=== PATIENT | female | born 1970 | race Caucasian/White ===

== ENCOUNTER → 2016-11-06 | Outpatient (CLI) | payer OTHER | LOC: CIMAGING 08:21 | DX: Z12.31 Encounter for screening mammogram for malignant neoplasm of breast (principal) | CPT/HCPCS: G0202 ==

== ENCOUNTER 2016-11-12 17:09 | Emergency (ER) | payer OTHER ==
[2016-11-12] MEDS ORDERED: HYDROCOD/APAP 5/325 PREPACK#6 BTL TAKEHOME ONE (17:39)
--- NOTE | 2016-11-12 17:48 | EDPHY ---
H & P Time Seen by Provider: 11/12/16 17:20 HPI/ROS: HPI Right ear and right arm pain. 46-year-old female by private vehicle with her daughter. This patient has a history of MS. Medications currently include gabapentin which she takes for chronic nerve pain and Cymbalta. She recently started taking Cymbalta about a week and half ago. She also gets an immune modulator infusion monthly. She reports that yesterday she developed pain in her right ear which she describes as feeling like an ear infection which radiates down the right side of her neck into her right shoulder and down her right upper extremity. She also describes having muscle tightness and which she describes as muscle spasms in her right upper extremity only. She denies any new focal weakness or altered sensation. She has not had a fever. She denies any history of traumatic injury. She denies any new headache. She has no other complaints. ROS: Constitutional: No fever, no chills. No weakness. Eyes: No discharge. No changes in vision. ENT: No sore throat. No nasal congestion or rhinorrhea. As above. Respiratory: No cough. No shortness of breath. Cardiac: No chest pain, no palpitations. Gastrointestinal: No abdominal pain, no vomiting, no diarrhea. Genitourinary: No hematuria. No dysuria or increased frequency with urination. Musculoskeletal: No back pain. No neck pain. As above. Skin: No rashes. Neurological: No new headache. No new focal weakness or altered sensation. Past medical history: MS, right shoulder surgery in 2016, cholecystectomy, appendectomy, neurologist is Dr. Pittman. She also sees a neurologist down in [place]. Social history: Nonsmoker. Here with her daughter. Physical Exam: General Appearance: Alert, no distress. This patient is responding to questions appropriately and in full sentences. This patient appears well- hydrated and well-nourished. Eyes: Pupils equal and round no pallor or injection. No lid edema, erythema or injection. ENT, Mouth: Mucous membranes are moist. The pharyngeal tissues are unremarkable. No edema or swelling. No asymmetry suggestive of abscess. No erythema or exudates. The right external auditory canal is clear and patent. The right tympanic membrane was clearly identified and is normal. No vesicles. No other pathology noted. Left external auditory canal and left tympanic membrane are normal. No stridor on auscultation of her neck. No carotid bruits noted on auscultation. Respiratory: There are no retractions, lungs are clear to auscultation with good air movement bilaterally. Cardiovascular: Regular rate and rhythm. No murmur. Neurological: Motor sensory function is grossly intact with chronic right grocery clerk weakness which is at baseline according to the patient. Cranial nerves are normal. Gait is normal. Skin: Warm and dry, no rashes. Musculoskeletal: Neck is supple. No pain on flexion of the neck. No midline cervical spine tenderness. She has vague tenderness lateral paraspinal lower cervical musculature extending down into the right trapezius body. She has normal capillary refill in all digits of the right upper extremity. Normal sensation in all dermatomes of the right upper extremity. There is no asymmetry in comparison to the left upper extremity. No muscle spasming noted. Deep tendon reflexes in the right upper extremity are normal and symmetric in comparison to the left. Extremities are symmetrical. All joints range without pain or impingement. Psychiatric: No agitation. No depression. Database: EKG: Imaging: Procedures: Emergency department course: Vital signs reviewed and are normal. After my evaluation, I reviewed the differential diagnosis with her. She was given 600 mg of ibuprofen and 2 Decherd tablets. I do not believe this is an MS exacerbation, zoster, otitis media or a radiculopathy. Torticollis or dystonic reaction is also unlikely. Plan will be to treat her with high-dose ibuprofen and a short course of Vicodin for 2-3 days for likely musculoskeletal etiology. She is to follow up with her neurologist in [place] within the next 1-2 days. If her symptoms worsen she is to return to the emergency department immediately for re-evaluation. She is in agreement with this plan. All of her questions were answered. She was discharged with her daughter in good condition. Differential Diagnosis: The differential diagnosis on this patient includes but is not limited to muscle spasm, cervical strain. Zoster, otitis media, cervical radiculopathy, CVA, acute MS exacerbation, traumatic cervical spine injury, carotid artery dissection, medication reaction unlikely. This represents a partial list of diagnoses considered. These considerations are based on history, physical exam , past history, reassessment and diagnostic testing. Smoking Status: Never smoked Constitutional: Initial Vital Signs Temperature (C) 37.4 C 11/12/16 17:12 Heart Rate 80 05/23/17 17:12 Respiratory Rate 16 11/12/16 17:12 Blood Pressure 122/75 H 11/12/16 17:12 O2 Sat (%) 95 11/12/16 17:12 O2 Delivery Mode Room Air Allergies/Adverse Reactions: No Known Allergies Allergy (Unverified 11/12/16 17:17) Home Medications: Medication Instructions Recorded Cymbalta 11/12/16 GABAPENTIN 11/12/16 Tysabri 11/12/16 Medical Decision Making - Data Points Medications Given: Discontinued Medications Hydrocodone Bitart/Acetaminophen (Decherd 5/325mg Prepack#6) 1 btl TAKEHOME EDNOW ONE Stop: 11/12/16 17:40 Last Admin: 11/12/16 17:42 Dose: 1 btl Hydrocodone Bitart/Acetaminophen (Decherd 5/325) 2 tab PO EDNOW ONE Stop: 11/12/16 17:54 Last Admin: 11/12/16 17:55 Dose: 2 tab Ibuprofen (Motrin) 600 mg PO EDNOW ONE Stop: 11/12/16 17:53 Last Admin: 11/12/16 17:54 Dose: 600 mg Departure - Departure Disposition: Home, Routine, Self-Care Clinical Impression: Ear pain, right, Right upper limb pain Condition: Good Instructions: Hydrocodone/Acetaminophen (By mouth), Earache (ED), Arm Pain (ED) Additional Instructions: Read and follow provided instructions. Follow-up with your neurologist as discussed in 1-2 days for re-evaluation. Take medication as prescribed only. Decherd/Percocet dosin-2 every 4-[address] for [address] not drive on this medication. Ibuprofen dosin mg every 6 hours with meals for the next 3 days only. Return to the emergency department for worsening symptoms, worsening pain, weakness, loss of sensation or other serious concerns. Referrals: Ariel Pittman DO [Medical Doctor] - As per Instructions
[2016-11-12] MEDS ORDERED: IBUPROFEN 800 MG TAB PO ONE (17:52)
[2016-11-12] MEDS ORDERED: IBUPROFEN 600 MG TAB PO ONE (17:53)
[2016-11-12] MEDS ORDERED: HYDROCODONE/APAP 5/325 TAB ONE (17:53)
[2016-11-12] MEDS ORDERED: HYDROCODONE/APAP 5/325 TAB PO ONE (17:53)
[2016-11-12 18:02] VITALS: BP 136/83; PULSE 79; RESP 14; TEMP 98.4; O2SAT 96
== END 2016-11-12 18:00 | disposition home or self-care (01) ==
LOC: CED 17:09
DX: H92.01 Otalgia, right ear (principal); M79.621 Pain in right upper arm

== ENCOUNTER 2016-12-17 18:57 | Emergency (ER) | payer OTHER ==
[2016-12-17] MEDS ORDERED: METOCLOPRAMIDE 10 MG/2 ML VIAL IVP ONE (19:29)
[2016-12-17 19:34] LABS: % IMMATURE GRANULYOCYTES 0.4 % (0.0-1.1); ABSOLUTE IMMATURE GRANULOCYTES 0.03 10^3/uL (0.00-0.10); ABSOLUTE NRBC COUNT 0.06 10^3/uL (0-0.01); ADD DIFF? NO; ADD MORPH? NO; ADD SCAN? NO; ATYPICAL LYMPHOCYTE FLAG 20 (0-99); FRAGMENT RBC FLAG 0 (0-99); HEMATOCRIT 37.1 % (38.0-47.0); HEMOGLOBIN 12.9 g/dL (12.6-16.3); LEFT SHIFT FLG 0 (0-99); LIPEMIA HEMOLYSIS FLAG 90 (0-99); MEAN CELL HEMOGLOBIN 30.4 pg (27.9-34.1); MEAN CELL HEMOGLOBIN CONCENTR. 34.8 g/dL (32.4-36.7); MEAN CELL VOLUME 87.5 fL (81.5-99.8); MEAN PLATELET VOLUME 9.4 fL (8.7-11.7); NRBC-AUTO% 0.8 % (0.0-0.2); PLATELET CLUMPS FLAG 0 (0-99); PLATELET COUNT 259 10^3/uL (150-400); RED BLOOD CELL COUNT 4.24 10^6/uL (4.18-5.33); RED CELL DISTRIBUTION WIDTH 13.8 % (11.5-15.2)
[2016-12-17 19:47] LABS: ANION GAP 12 mEq/L (8-16); CALCIUM 8.8 mg/dL (8.5-10.4); CARBON DIOXIDE 20 mEq/l (22-31); CHLORIDE 107 mEq/L (97-110); CREATININE 0.6 mg/dL (0.6-1.0); GLOMERULAR FILTRATION RATE > 60; GLUCOSE 93 mg/dL (70-100); POTASSIUM 4.2 mEq/L (3.5-5.2); SODIUM 139 mEq/L (134-144)
[2016-12-17 20:12] VITALS: RESP 16; TEMP 98.2
--- NOTE | 2016-12-17 20:17 | EDPHY ---
H & P Stated Complaint: c/o Double vision while watching movie today Time Seen by Provider: 12/17/16 19:15 HPI/ROS: This patient reports onset of diplopia while watching a movie today at 5:30 p.m. with her daughter. It was not a 3D movie. She reports that she feels fatigued today because of neuro cognitive testing that was done from 930-145 today. She also admits to 2 drinks of alcohol-1 glass of shard in a and a glass of sangria. She has had diplopia associated with her MS when she 1st presented with MS and also when she is fatigue. She also reports onset of headache around the same time that is right occipital in location extend the parietal region and is currently 4/10 intensity, throbbing in nature and similar to migraines though not as severe as her typical migraines. She has associated nausea and photophobia. Finally, she reports mild vertigo which she says she also gets with her MS. She has no change in her baseline right arm and leg numbness that she attributes to her MS. The diplopia diminishes when she closes her right eye. No other exacerbating factors ROS: No fevers chills or other constitutional symptoms HEENT: She has mild coryza but no other HEENT complaints. No eye trauma. No eye discharge or redness Neuro: As per HPI. No new numbness tingling or weakness. No recent head trauma. No eye trauma. She does report increased blurred vision for about 2 weeks compared to baseline bilaterally. Pulmonary: Minimal intermittent cough for the past few days. This is mostly in the mornings and then clears. No pleuritic pain. No hemoptysis. No dyspnea. Cardiovascular: No chest pain. No lower extremity swelling. GI: Nausea but no vomiting. No abdominal pain : Last menstrual period-none due to hysterectomy. No other symptoms Endocrine: Negative Integumentary: No skin rash Complete review of symptoms is otherwise negative. Source: Patient Exam Limitations: No limitations - Personal History Current Tetanus Diphtheria and Acellular Pertussis (TDAP): Yes Tetanus Vaccine Date: WITHIN 10 YRS - Medical/Surgical History Hx Asthma: No Hx Chronic Respiratory Disease: No Hx Diabetes: No Hx Cardiac Disease: No Hx Renal Disease: No Hx Cirrhosis: No Hx Alcoholism: No Hx HIV/AIDS: No Hx Splenectomy or Spleen Trauma: No Other PMH: MS, right shoulder surgery 2016, freddie, parag, hysterectomy - Family History Significant Family History: No pertinent family hx - Social History Smoking Status: Never smoked Alcohol Use: Occasionally Drug Use: None - Physical Exam Exam: Physical exam: Vital signs are normal General: Patient is in no acute distress. HEENT: Is no external evidence of trauma on exam. Nose atraumatic. Ears: Clear bilaterally with no hemotympanum. Oropharynx: No dental trauma or malocclusion. No intraoral lacerations. Eyes: Pupils are equal and reactive to light. Extraocular motions are grossly intact with no obvious dysconjugate gaze. She does report worsening diplopia with extraocular motions however. Optic fundi: Unable to perform due to intolerance of bright light. Visual acuity is reviewed as per nurse's documentation Lungs: Clear to auscultation bilaterally Neck: Supple no meningismus. Cardiac: Regular rate and rhythm no murmur gallop or rub. Abdomen: Soft nontender no organomegaly Neuro: GCS of 15. Cranial nerves II through XII intact. Cerebellar exam is normal as judged by symmetric rapid hand movements bilaterally. No pronator drift. No sensory or motor deficits are appreciated. Initial differential diagnosis: Migraine, tension headache, PLATE ROLLER lesion, intracranial bleed, MS with increased symptoms due to alcohol and fatigue, MS flare Constitutional: Initial Vital Signs Temperature (C) 36.6 C 12/17/16 19:18 Heart Rate 96 12/17/16 19:18 Respiratory Rate 18 12/17/16 19:18 Blood Pressure 119/97 H 12/17/16 19:18 O2 Sat (%) 97 12/17/16 19:18 O2 Delivery Mode Room Air Allergies/Adverse Reactions: No Known Allergies Allergy (Unverified 11/12/16 17:17) Home Medications: Medication Instructions Recorded Cymbalta 11/12/16 GABAPENTIN 11/12/16 Tysabri 11/12/16 AMITRIPTYLINE HCL 12/17/16 Medical Decision Making - Diagnostics Imaging Results: Imaging Impressions Head CT 12/17/16 19:29 Impression: 1. No acute intracranial abnormality seen. 1. Possible small periventricular white matter plaques in this patient with clinical history of multiple sclerosis. If indicated, consider correlation with MRI at some point. Findings discussed with Florentin Johnson M.D. at 20:49 hour, 12/17/2016. Imaging: Discussed imaging studies w/ call or contact centre coach Radiologist (I also reviewed the CT images myself.) ED Course/Re-evaluation: IV Reglan and Benadryl initially with relief of nausea but no significant improvement in headache Normal saline bolus after review of CT and Toradol 30 mg IV some improvement. At 9:11 p.m. I spoke with the patient in her headache is down to 2/10 after treatment she feels improved. However her diplopia persists to the same severity. I spoke with Dr. Trejo-the on-call neurologist regarding this patient who recommends an IV Solu-Medrol dose-500 mg for likely MS flare The patient has an appointment already for tomorrow to see her PA that works with Dr. Dupont-her neurologist Discussion: Patient with migraine headache that improved significantly with treatment and evidence of MS flare with recurrence of diplopia similar to her diplopia with the onset of MS treated with Solu-Medrol with plan for close follow up with Neurology. CT scan ruled out significant intracranial bleed or lesion. - Data Points Laboratory Results: Laboratory Results 12/17/16 19:22 12/17/16 19:22 12/17/16 12/17/16 19:22 19:22 WBC 7.60 10^3/uL 10^3/uL (3.80-9.50) RBC 4.24 10^6/uL 10^6/uL (4.18-5.33) Hgb 12.9 g/dL g/dL (12.6-16.3) Hct 37.1 % L % (38.0-47.0) MCV 87.5 fL fL (81.5-99.8) MCH 30.4 pg pg (27.9-34.1) MCHC 34.8 g/dL g/dL (32.4-36.7) RDW 13.8 % % (11.5-15.2) Plt Count 259 10^3/uL 10^3/uL (150-400) MPV 9.4 fL fL (8.7-11.7) Neut % (Auto) 31.1 % L % (39.3-74.2) Lymph % (Auto) 57.8 % H % (15.0-45.0) [place] % (Auto) 6.2 % % (4.5-13.0) Eos % (Auto) 3.7 % % (0.6-7.6) Baso % (Auto) 0.8 % % (0.3-1.7) Nucleat RBC Rel Count 0.8 % H % (0.0-0.2) Absolute Neuts (auto) 2.37 10^3/uL 10^3/uL (1.70-6.50) Absolute Lymphs (auto) 4.39 10^3/uL H 10^3/uL (1.00-3.00) Absolute Monos (auto) 0.47 10^3/uL 10^3/uL (0.30-0.80) Absolute Eos (auto) 0.28 10^3/uL 10^3/uL (0.03-0.40) Absolute Basos (auto) 0.06 10^3/uL 10^3/uL (0.02-0.10) Absolute Nucleated RBC 0.06 10^3/uL H 10^3/uL (0-0.01) Immature Gran % 0.4 % % (0.0-1.1) Immature Gran # 0.03 10^3/uL 10^3/uL (0.00-0.10) Sodium 139 mEq/L mEq/L (134-144) Potassium 4.2 mEq/L mEq/L (3.5-5.2) Chloride 107 mEq/L mEq/L (97-110) Carbon Dioxide 20 mEq/l L mEq/l (22-31) Anion Gap 12 mEq/L mEq/L (8-16) BUN 7 mg/dL mg/dL (7-23) Creatinine 0.6 mg/dL mg/dL (0.6-1.0) Estimated GFR > 60 Glucose 93 mg/dL mg/dL (70-100) Calcium 8.8 mg/dL mg/dL (8.5-10.4) Medications Given: Discontinued Medications Acetaminophen (Tylenol) 975 mg PO EDNOW ONE Stop: 12/17/16 21:12 Last Admin: 12/17/16 21:18 Dose: 975 mg Diphenhydramine HCl (Benadryl Injection) 25 mg IVP EDNOW ONE Stop: 12/17/16 19:29 Last Admin: 12/17/16 19:42 Dose: 25 mg Sodium Chloride (Ns) 1,000 mls @ 0 mls/hr IV ONCE ONE; Wide Open PRN Reason: Protocol Stop: 12/17/16 20:26 Last Admin: 12/17/16 20:33 Dose: 1,000 mls Ketorolac Tromethamine (Toradol) 30 mg IVP EDNOW ONE Stop: 12/17/16 20:26 Last Admin: 12/17/16 20:32 Dose: 30 mg Metoclopramide HCl (Reglan Injection) 5 mg IVP EDNOW ONE Stop: 12/17/16 19:30 Last Admin: 12/17/16 19:43 Dose: 5 mg Departure - Departure Disposition: Home, Routine, Self-Care Clinical Impression: Diplopia, Multiple sclerosis Migraine Qualifiers: Migraine type: unspecified Status migrainosus presence: without status migrainosus Intractability: not intractable Qualified Code(s): G43.909 - Migraine, unspecified, not intractable, without status migrainosus Condition: Good Instructions: Migraine Headache (ED), Diplopia (ED) Additional Instructions: Diagnosis: 1. Diplopia 2. Multiple sclerosis 3. Migraine Plan: Your given IV [id number] mg for treatment of evidence of MS flare after consultation with Dr. Trejo-the on-call neurologist Follow up with your neurology PA tomorrow. Continue current medications Return emergency department for any significant worsening despite the treatment plan Referrals: Wilder Delcid DO [Primary Care Provider] - As per Instructions
[2016-12-17] MEDS ORDERED: NS 1,000 ML IV ONE (20:25)
[2016-12-17] MEDS ORDERED: KETOROLAC 30 MG/1 ML SDV IVP ONE (20:25)
[2016-12-17] MEDS ORDERED: ACETAMINOPHEN 325 MG TAB PO ONE (21:11)
[2016-12-17] MEDS ORDERED: methylPREDNISolone SOD SUCC 500 MG in D5W 100 ML IV ONE (21:21)
[2016-12-17] MEDS ORDERED: methylPREDNISolone SOD SUCC 1 GM/8 ML VIAL ONE (21:25)
[2016-12-17] MEDS ORDERED: methylPREDNISolone SOD SUCC 125 MG/2 ML VIAL ONE (21:27)
[2016-12-17] MEDS ORDERED: NS 100 ML BAG IV ONE (21:34)
[2016-12-17 22:22] VITALS: O2SAT 95
[2016-12-17] MEDS ORDERED: HYDROmorphONE/DILAUDID 1 MG/ML SYR IVP ONE (22:48)
[2016-12-17 23:30] VITALS: BP 124/88; PULSE 87
== END 2016-12-17 23:37 | disposition home or self-care (01) ==
LOC: CED 18:57
DX: H53.2 Diplopia (principal); G35 Multiple sclerosis; G43.909 Migraine, unspecified, not intractable, without status migrainosus; E86.9 Volume depletion, unspecified; Z90.710 Acquired absence of both cervix and uterus; Z90.49 Acquired absence of other specified parts of digestive tract
CPT/HCPCS: 70450-PO; 80048-PO; 85025-PO; 96365; J1170; J1200; J1885; J2765; J2930

== ENCOUNTER → 2017-04-02 | Outpatient (CLI) | payer OTHER ==
--- NOTE | 2017-04-02 17:03 | CPEEG ---
[f rep st] ELECTROENCEPHALOGRAM DATE OF STUDY: 04/02/2017 INTERPRETATION: Normal EEG during wakefulness and sleep. There were no potentially epileptogenic ab normalities present on the recording. REPORT: This EEG contains 9 Hz alpha activity to the posterior head regions. There was no abnormal activation at rest, during photic stimulation or hyperventilation. The patient became drowsy and fel l asleep during the study. There was no abnormal activation during drowsiness, sleep, or during time s of arousal. /[id number]/MODL
== END ==
LOC: FCPNEURO 10:31
PROVIDERS: ATTEND Physician Assistant Medical
DX: R40.4 Transient alteration of awareness (principal); G35 Multiple sclerosis

== ENCOUNTER 2017-07-24 09:29 | Emergency (ER) | payer OTHER ==
[2017-07-24 09:43] VITALS: RESP 16; TEMP 98.6
[2017-07-24] MEDS ORDERED: NS 1,000 ML IV ONE ×2 (09:45→10:51)
[2017-07-24] MEDS ORDERED: ONDANSETRON 4 MG/2 ML VIAL IVP ONE ×2 (09:45→10:23)
[2017-07-24] MEDS ORDERED: KETOROLAC 30 MG/1 ML SDV IVP ONE (09:45)
--- NOTE | 2017-07-24 09:47 | EDPHY ---
H & P Stated Complaint: PT. states vomiting and diarrhea since last night(2129),chills Time Seen by Provider: 07/24/17 09:41 HPI/ROS: CHIEF COMPLAINT: Nausea, vomiting and diarrhea HISTORY OF PRESENT ILLNESS: Patient is a 46-year-old female with a history of MS who comes to the emergency department complaining of nausea vomiting and diarrhea that began last night. No fevers. No blood in her vomit or stool. She states that she has vomited about 15 times. She tried taking Pepto-Bismol but threw it up. She cannot keep down fluids. She does have a history of appendectomy, cholecystectomy and hysterectomy. She has not felt bloated or distended. She does not have any sick contacts. No chest pain or shortness of breath. No weakness. No rash. She does have occasional chills. REVIEW OF SYSTEMS: Constitutional: See HPI EENTM: denies: blurred vision, double vision, nose congestion Respiratory: denies: cough, shortness of breath Cardiac: denies: chest pain, irregular heart rate, lightheadedness, palpitations Gastrointestinal/Abdominal: See HPI Genitourinary: denies: dysuria, frequency, hematuria, pain Musculoskeletal: denies: joint pain, muscle pain Skin: denies: lesions, rash, jaundice, bruising Neurological: denies: headache, numbness, paresthesia, tingling, dizziness, weakness Hematologic/Lymphatic: denies: blood clots, easy bleeding, easy bruising Immunologic/allergic: denies: HIV/AIDS, transplant EXAM: GENERAL: Uncomfortable, well-nourished and in no acute distress. HEAD: Atraumatic, normocephalic. EYES: Pupils equal round and reactive to light, extraocular movements intact, sclera anicteric, conjunctiva are normal. ENT: TMs normal, nares patent, oropharynx clear without exudates. Moist mucous membranes. NECK: Normal range of motion, supple without lymphadenopathy or JVD. LUNGS: Breath sounds clear to auscultation bilaterally and equal. No wheezes rales or rhonchi. HEART: Regular rate and rhythm without murmurs, rubs or gallops. ABDOMEN: Soft, nontender, normoactive bowel sounds. No guarding, no rebound. No masses appreciated. BACK: No CVA tenderness, no spinal tenderness, step-offs or deformities EXTREMITIES: Normal range of motion, no pitting or edema. No clubbing or cyanosis. NEUROLOGICAL: Cranial nerves II through XII grossly intact. Normal speech, normal gait. 5/5 strength, normal movement in all extremities, normal sensation PSYCH: Normal mood, normal affect. SKIN: Warm, dry, normal turgor, no visible rashes or lesions. Source: Patient, Family, Old records Exam Limitations: No limitations - Personal History LMP (Females 10-55): Hysterectomy Tetanus Vaccine Date: WITHIN 10 YRS - Medical/Surgical History Hx Asthma: No Hx Chronic Respiratory Disease: No Hx Diabetes: No Hx Cardiac Disease: No Hx Renal Disease: No Hx Cirrhosis: No Hx Alcoholism: No Hx HIV/AIDS: No Hx Splenectomy or Spleen Trauma: No Other PMH: MS, right shoulder surgery 2016, [employer], hysterectomy - Family History Significant Family History: No pertinent family hx - Social History Smoking Status: Never smoked Alcohol Use: None Constitutional: Initial Vital Signs Temperature (C) 37.0 C 07/24/17 09:39 Heart Rate 108 H 07/24/17 09:39 Respiratory Rate 16 07/24/17 09:39 Blood Pressure 143/119 H 07/24/17 09:39 O2 Sat (%) 97 07/24/17 09:39 O2 Delivery Mode Room Air Allergies/Adverse Reactions: No Known Allergies Allergy (Verified 07/24/17 09:37) Home Medications: Medication Instructions Recorded Cymbalta 11/12/16 GABAPENTIN 11/12/16 Tysabri 11/12/16 Baclofen 10 mg (*) 07/24/17 DULoxetine 07/24/17 Diazepam 07/24/17 Dicyclomine 07/24/17 Estradiol 07/24/17 Promethazine HCl [Phenergan 25mg 25 mg PO Q6-8PRN PRN #20 tab 07/24/17 (RX)] SUMAtriptan 07/24/17 Tramadol HCl 07/24/17 busPIRone 07/24/17 Medical Decision Making ED Course/Re-evaluation: 11:15 a.m. the patient's abdominal exam remains benign. She was feeling better but starting to feel nauseous again after p.o. challenge. I will treat her with Phenergan and will continue to observe. She has not yet provided a urine sample. She is still receiving IV fluids. 11:10 p.m. the patient is doing well. Her abdominal exam is benign. She is tolerating p. o.. She is asking to go home and asking for Phenergan prescription. She states this worked better than the Zofran. Differential Diagnosis: Partial list of the Differential diagnosis considered include but were not limited to; gastritis, food poisoning and although unlikely based on the history and physical exam, I also considered obstruction, ischemia, volvulus, hernia. I discussed these differential diagnoses and the plan with the patient as well as the usual and expected course. The patient understands that the diagnosis is provisional and that in medicine we are not always correct and that further workup is often warranted. Usual and customary warnings were given. All of the patient's questions were answered. The patient was instructed to return to the emergency department should the symptoms at all worsen or return, otherwise to followup with the physician as we discussed. - Data Points Laboratory Results: Laboratory Results 07/24/17 09:45 07/24/17 09:45 07/24/17 07/24/17 07/24/17 11:55 09:45 09:45 WBC RBC Hgb Hct MCV MCH MCHC RDW Plt Count MPV Neut % (Auto) Lymph % (Auto) [place] % (Auto) Eos % (Auto) Baso % (Auto) Nucleat RBC Rel Count Absolute Neuts (auto) Absolute Lymphs (auto) Absolute Monos (auto) Absolute Eos (auto) Absolute Basos (auto) Absolute Nucleated RBC Immature Gran % Immature Gran # Sodium 145 mEq/L mEq/L (135-145) Potassium 4.2 mEq/L mEq/L (3.5-5.2) Chloride 107 mEq/L mEq/L (97-110) Carbon Dioxide 20 mEq/l L D mEq/l (22-31) Anion Gap 18 mEq/L H mEq/L (8-16) BUN 10 mg/dL mg/dL (7-23) Creatinine 0.6 mg/dL mg/dL (0.6-1.0) Estimated GFR > 60 Glucose 102 mg/dL H mg/dL (70-100) Calcium 10.1 mg/dL mg/dL (8.5-10.4) Total Bilirubin 0.6 mg/dL mg/dL (0.1-1.4) Conjugated Bilirubin 0.2 mg/dL mg/dL (0.0-0.5) Unconjugated Bilirubin 0.4 mg/dL mg/dL (0.0-1.1) AST 31 IU/L IU/L (14-46) ALT 38 IU/L IU/L (9-52) Alkaline Phosphatase 98 IU/L IU/L (38-126) Total Protein 7.8 g/dL g/dL (6.3-8.2) Albumin 4.6 g/dL g/dL (3.5-5.0) Lipase 120 IU/L IU/L (23-300) Beta HCG, Qual NEGATIVE Urine Color YELLOW Urine Appearance HAZY Urine pH 8.5 H (5.0-7.5) Ur Specific [place] 1.015 (1.002-1.030) Urine Protein TRACE H (NEGATIVE) Urine Ketones 2+ H (NEGATIVE) Urine Blood NEGATIVE (NEGATIVE) Urine Nitrate NEGATIVE (NEGATIVE) Urine Bilirubin NEGATIVE (NEGATIVE) Urine Urobilinogen 0.2 EU EU (0.2-1.0) Ur Leukocyte Esterase NEGATIVE (NEGATIVE) Urine RBC 1-3 /hpf /hpf (0-3) Urine WBC 1-3 /hpf /hpf (0-3) Ur Epithelial Cells TRACE /lpf /lpf (NONE-1+) Urine Bacteria TRACE /hpf H /hpf (NONE SEEN) Urine Mucus TRACE /lpf /lpf (NONE-1+) Urine Glucose NEGATIVE (NEGATIVE) 07/24/17 09:45 WBC 8.86 10^3/uL 10^3/uL (3.80-9.50) RBC 4.74 10^6/uL 10^6/uL (4.18-5.33) Hgb 14.1 g/dL g/dL (12.6-16.3) Hct 40.4 % % (38.0-47.0) MCV 85.2 fL fL (81.5-99.8) MCH 29.7 pg pg (27.9-34.1) MCHC 34.9 g/dL g/dL (32.4-36.7) RDW 13.9 % % (11.5-15.2) Plt Count 279 10^3/uL 10^3/uL (150-400) MPV 9.0 fL fL (8.7-11.7) Neut % (Auto) 63.0 % % (39.3-74.2) Lymph % (Auto) 30.4 % % (15.0-45.0) [place] % (Auto) 4.9 % % (4.5-13.0) Eos % (Auto) 0.7 % % (0.6-7.6) Baso % (Auto) 0.7 % % (0.3-1.7) Nucleat RBC Rel Count 0.7 % H % (0.0-0.2) Absolute Neuts (auto) 5.59 10^3/uL 10^3/uL (1.70-6.50) Absolute Lymphs (auto) 2.69 10^3/uL 10^3/uL (1.00-3.00) Absolute Monos (auto) 0.43 10^3/uL 10^3/uL (0.30-0.80) Absolute Eos (auto) 0.06 10^3/uL 10^3/uL (0.03-0.40) Absolute Basos (auto) 0.06 10^3/uL 10^3/uL (0.02-0.10) Absolute Nucleated RBC 0.06 10^3/uL H 10^3/uL (0-0.01) Immature Gran % 0.3 % % (0.0-1.1) Immature Gran # 0.03 10^3/uL 10^3/uL (0.00-0.10) Sodium Potassium Chloride Carbon Dioxide Anion Gap BUN Creatinine Estimated GFR Glucose Calcium Total Bilirubin Conjugated Bilirubin Unconjugated Bilirubin AST ALT Alkaline Phosphatase Total Protein Albumin Lipase Beta HCG, Qual Urine Color Urine Appearance Urine pH Ur Specific [place] Urine Protein Urine Ketones Urine Blood Urine Nitrate Urine Bilirubin Urine Urobilinogen Ur Leukocyte Esterase Urine RBC Urine WBC Ur Epithelial Cells Urine Bacteria Urine Mucus Urine Glucose Medications Given: Discontinued Medications Sodium Chloride (Ns) 1,000 mls @ 0 mls/hr IV EDNOW ONE; Wide Open PRN Reason: Protocol Stop: 07/24/17 09:46 Last Admin: 07/24/17 09:47 Dose: 1,000 mls Sodium Chloride (Ns) 1,000 mls @ 0 mls/hr IV ONCE ONE PRN Reason: Wide Open Stop: 07/24/17 10:52 Last Admin: 07/24/17 10:54 Dose: 1,000 mls Ketorolac Tromethamine (Toradol) 15 mg IVP EDNOW ONE Stop: 07/24/17 09:46 Last Admin: 07/24/17 09:58 Dose: 15 mg Ondansetron HCl (Zofran) 4 mg IVP EDNOW ONE Stop: 07/24/17 09:46 Last Admin: 07/24/17 09:51 Dose: 4 mg Ondansetron HCl (Zofran) 4 mg IVP EDNOW ONE Stop: 07/24/17 10:24 Last Admin: 07/24/17 10:27 Dose: 4 mg Promethazine HCl (Phenergan) 25 mg IVP EDNOW ONE Stop: 07/24/17 11:21 Last Admin: 07/24/17 11:36 Dose: 25 mg Departure - Departure Disposition: Home, Routine, Self-Care Clinical Impression: Acute gastroenteritis Condition: Fair Instructions: Promethazine (By mouth), Gastroenteritis (ED) Referrals: Wilder Delcid DO [Primary Care Provider] - As per Instructions Prescriptions: Promethazine HCl [Phenergan 25mg (RX)] 25 mg PO Q6-8PRN PRN #20 tab PRN Reason: Nausea/Vomiting, Use 1st
[2017-07-24 09:55] LABS: PLATELET COUNT 279 10^3/uL (150-400)
[2017-07-24] MEDS ORDERED: PROMETHAZINE HCL 25 MG/ML INJ IVP ONE (11:20)
[2017-07-24 12:53] VITALS: BP 108/68; PULSE 104; O2SAT 94
== END 2017-07-24 13:20 | disposition home or self-care (01) ==
LOC: CED 09:29
PROC: 3E0337Z Introduction of Electrolytic and Water Balance Substance into Peripheral Vein, Percutaneous Approach (ICD-10-PCS; principal; 2017-07-24)
DX: K52.9 Noninfective gastroenteritis and colitis, unspecified (principal); E86.9 Volume depletion, unspecified
CPT/HCPCS: 80048-PO; 80076-PO; 81003-PO; 81015-PO; 83690-PO; 84703-PO; 85025-PO; 96374; J1885; J2405; J2550